=== PATIENT | female | born 1960 | race Caucasian/White ===

== ENCOUNTER 2018-07-01 22:43 | Emergency (ER) | payer MEDICARE, BC ==
[2018-07-01] MEDS ORDERED: ONDANSETRON 4 MG/2 ML VIAL IVP STA (23:11)
[2018-07-01] MEDS ORDERED: HYDROmorphone 1 MG/ML 1 ML SYRINGE IVP STA (23:11)
[2018-07-01] MEDS ORDERED: SODIUM CHLORIDE 0.9% 1,000 ML IV STA (23:11)
--- NOTE | 2018-07-01 23:46 | ED ---
General Adult HPI - General Chief complaint: Back Pain/Injury Stated complaint: Back, Abdominal Pain Time Seen by Provider: 07/01/18 23:02 Source: patient, family Mode of arrival: ambulatory Limitations: no limitations - History of Present Illness Initial comments: 57-year-old female patient presents to the emergency department today for evaluation of back pain and abdominal pain. Patient states that she started having symptoms last Friday. Patient states that she was having low back pain that radiated up her spine and around her upper abdomen. Patient states that with this she develops shortness of breath and nausea. Patient states that she was seen and evaluated for this at [facility] on Friday, states he did labs and a CAT scan and found no abnormalities. Patient states they discharged her with Toradol which she has been taking but it is not helping. Patient states she did improve over the last 2 days however symptoms started again today around 6 PM. Patient states the pain is worsening. States currently she is nauseated and short of breath. She has history of appendectomy but no other abdominal surgeries. States she has not vomited today. She denies any numbness or tingling to the lower extremities. Denies saddle anesthesia or loss of bowel or bladder control. She denies any hematuria , dysuria, urinary frequency, urinary urgency. He denies any fevers or chills with this. Denies chest pain. Patient denies any recent rash, diarrhea, constipation, back pain, numbness, tingling, dizziness, weakness, headache, visual changes, or any other complaints. - Related Data Home Medications Medication Instructions Recorded Confirmed Acetaminophen [Tylenol] 1,000 mg PO Q6HR 07/01/18 07/01/18 Ketorolac [Toradol] 07/01/18 Previous Rx's Medication Instructions Recorded Mag Hydrox/Al Hydrox/Simeth 30 ml PO Q6H PRN #300 ml 07/02/18 [Maalox] Ranitidine HCl [Zantac] 150 mg PO HS #30 tab 07/02/18 Allergies Allergy/AdvReac Type Severity Reaction Status Date / Time vancomycin Allergy Rash/Hives Verified 07/01/18 23:08 Review of Systems ROS Statement: Those systems with pertinent positive or pertinent negative responses have been documented in the HPI. ROS Other: All systems not noted in ROS Statement are negative. Past Medical History Past Medical History: Hyperlipidemia History of Any Multi-Drug Resistant Organisms: None Reported Past Surgical History: Appendectomy, Orthopedic Surgery Additional Past Surgical History / Comment(s): ORIF OF RIGHT FOOT X 2. Past Anesthesia/Blood Transfusion Reactions: No Reported Reaction Past Psychological History: No Psychological Hx Reported Smoking Status: Former smoker Past Alcohol Use History: None Reported Past Drug Use History: Marijuana General Exam Limitations: no limitations General appearance: alert, in no apparent distress, other (This is a well- developed, well-nourished adult female patient in no acute distress. Vital signs upon presentation are temperature 97.6F, pulse 75, respirations 18, blood pressure 154/84, pulse ox 98% on room air.) Eye exam: Present: normal appearance, PERRL, EOMI. Absent: scleral icterus, conjunctival injection, periorbital swelling ENT exam: Present: normal exam, normal oropharynx, mucous membranes moist Respiratory exam: Present: normal lung sounds bilaterally. Absent: respiratory distress, wheezes, rales, rhonchi, stridor Cardiovascular Exam: Present: regular rate, normal rhythm, normal heart sounds. Absent: systolic murmur, diastolic murmur, rubs, gallop, clicks GI/Abdominal exam: Present: soft, tenderness (Upper abdominal tenderness), normal bowel sounds. Absent: distended, guarding, rebound, rigid Back exam: Present: normal inspection. Absent: vertebral tenderness Neurological exam: Present: alert, oriented X3, CN II-XII intact Psychiatric exam: Present: normal affect, normal mood Skin exam: Present: warm, dry, intact, normal color. Absent: rash Course Vital Signs 07/01/18 07/02/18 07/02/18 22:49 01:02 02:02 Temperature 97.6 F 97.1 F L 97.4 F L Pulse Rate 75 72 67 Respiratory 18 18 20 Rate Blood Pressure 154/84 135/84 123/70 O2 Sat by Pulse 98 94 L 93 L Oximetry 07/02/18 02:51 Temperature 98.6 F Pulse Rate Respiratory Rate Blood Pressure O2 Sat by Pulse 98 Oximetry EKG Findings - EKG Comments: EKG Findings:: EKG obtained at 008 shows normal sinus rhythm with a ventricular rate of 66, [place] interval 1:30, QRS duration 72, QT 450, QTC 471. No evidence of ST elevation or depression. Medical Decision Making - Medical Decision Making 57 old female patient percents to the emergency room today for complaints of back pain and epigastric pain. Patient states the pain wrapped around in a bandlike fashion. Physical examination was relatively unremarkable, abdomen soft and nontender. Patient had no CVA tenderness. Labs reviewed and did reveal mildly elevated white blood cell count at 10.8. Troponin was negative. EKG showed normal sinus rhythm. Urinalysis was negative for any evidence of infection or red blood cells indicating stone. Patient did receive 2 doses of pain medication here in the department, didn't help her symptoms much so we did perform CT angio of the aorta, showed no evidence of dissection or intra- abdominal process. Patient did also have CT abdomen and pelvis with contrast at [facility] on Friday, that showed no evidence of acute findings. Given patient's symptoms there is concern for gastritis, there may have been some thickening of the stomach on CT. We'll treat with GI cocktail and start patient on Zantac. She is instructed to follow-up with the primary care physician and gastroenterology for recheck as soon as possible. Return parameters discussed in detail. She verbalizes understanding and agrees with this plan. - Lab Data Result diagrams: 07/01/18 23:52 07/01/18 23:52 Lab Results 07/01/18 07/01/18 07/01/18 Range/Units 23:52 23:52 23:52 WBC 10.8 H (3.8-10.6) k/uL RBC 4.51 (3.80-5.40) m/uL Hgb 13.3 (11.4-16.0) gm/dL Hct 42.0 (34.0-46.0) % MCV 93.1 (80.0-100.0) fL MCH 29.6 (25.0-35.0) pg MCHC 31.8 (31.0-37.0) g/dL RDW 13.4 (11.5-15.5) % Plt Count 498 H (150-450) k/uL Neutrophils % 60 % Lymphocytes % 31 % Monocytes % 5 % Eosinophils % 1 % Basophils % 0 % Neutrophils # 6.5 (1.3-7.7) k/uL Lymphocytes # 3.3 (1.0-4.8) k/uL Monocytes # 0.6 (0-1.0) k/uL Eosinophils # 0.2 (0-0.7) k/uL Basophils # 0.0 (0-0.2) k/uL PT (9.0-12.0) sec INR (<1.2) APTT (22.0-30.0) sec Sodium 137 (137-145) mmol/L Potassium 5.0 (3.5-5.1) mmol/L Chloride 106 (98-107) mmol/L Carbon Dioxide 23 (22-30) mmol/L Anion Gap 8 mmol/L BUN 18 H (7-17) mg/dL Creatinine 0.72 (0.52-1.04) mg/dL Est GFR (CKD-EPI)AfAm >90 (>60 ml/min/1.73 sqM) Est GFR (CKD-EPI)NonAf >90 (>60 ml/min/1.73 sqM) Glucose 124 H (74-99) mg/dL Calcium 9.9 (8.4-10.2) mg/dL Total Bilirubin 0.4 (0.2-1.3) mg/dL AST 30 (14-36) U/L ALT 32 (9-52) U/L Alkaline Phosphatase 85 (38-126) U/L Total Creatine Kinase 177 H (30-135) U/L CK-MB (CK-2) 1.2 (0.0-2.4) ng/mL CK-MB (CK-2) Rel Index 0.7 Troponin I <0.012 (0.000-0.034) ng/mL Total Protein 6.9 (6.3-8.2) g/dL Albumin 4.1 (3.5-5.0) g/dL Amylase 56 (30-110) U/L Lipase 141 (23-300) U/L Urine Color Urine Appearance (Clear) Urine pH (5.0-8.0) Ur Specific [place] (1.001-1.035) Urine Protein (Negative) Urine Glucose (UA) (Negative) Urine Ketones (Negative) Urine Blood (Negative) Urine Nitrite (Negative) Urine Bilirubin (Negative) Urine Urobilinogen (<2.0) mg/dL Ur Leukocyte Esterase (Negative) 07/01/18 07/02/18 Range/Units 23:52 00:00 WBC (3.8-10.6) k/uL RBC (3.80-5.40) m/uL Hgb (11.4-16.0) gm/dL Hct (34.0-46.0) % MCV (80.0-100.0) fL MCH (25.0-35.0) pg MCHC (31.0-37.0) g/dL RDW (11.5-15.5) % Plt Count (150-450) k/uL Neutrophils % % Lymphocytes % % Monocytes % % Eosinophils % % Basophils % % Neutrophils # (1.3-7.7) k/uL Lymphocytes # (1.0-4.8) k/uL Monocytes # (0-1.0) k/uL Eosinophils # (0-0.7) k/uL Basophils # (0-0.2) k/uL PT 9.7 (9.0-12.0) sec INR 1.0 (<1.2) APTT 24.5 (22.0-30.0) sec Sodium (137-145) mmol/L Potassium (3.5-5.1) mmol/L Chloride (98-107) mmol/L Carbon Dioxide (22-30) mmol/L Anion Gap mmol/L BUN (7-17) mg/dL Creatinine (0.52-1.04) mg/dL Est GFR (CKD-EPI)AfAm (>60 ml/min/1.73 sqM) Est GFR (CKD-EPI)NonAf (>60 ml/min/1.73 sqM) Glucose (74-99) mg/dL Calcium (8.4-10.2) mg/dL Total Bilirubin (0.2-1.3) mg/dL AST (14-36) U/L ALT (9-52) U/L Alkaline Phosphatase (38-126) U/L Total Creatine Kinase (30-135) U/L CK-MB (CK-2) (0.0-2.4) ng/mL CK-MB (CK-2) Rel Index Troponin I (0.000-0.034) ng/mL Total Protein (6.3-8.2) g/dL Albumin (3.5-5.0) g/dL Amylase (30-110) U/L Lipase (23-300) U/L Urine Color Colorless Urine Appearance Clear (Clear) Urine pH 5.0 (5.0-8.0) Ur Specific [place] 1.007 (1.001-1.035) Urine Protein Negative (Negative) Urine Glucose (UA) Negative (Negative) Urine Ketones Negative (Negative) Urine Blood Negative (Negative) Urine Nitrite Negative (Negative) Urine Bilirubin Negative (Negative) Urine Urobilinogen <2.0 (<2.0) mg/dL Ur Leukocyte Esterase Negative (Negative) - Radiology Data Radiology results: report reviewed, image reviewed CT angio abdomen and pelvis and chest was obtained, report was reviewed in its entirety, impression by Dr. Nelson shows there is mild atherosclerotic vascular disease. No evidence of aortic aneurysm or dissection. No evidence of hemodynamically significant stenosis. No evidence of pulmonary embolism. Minimal nodular and linear infiltrates at the lung bases consistent with scarring and subsegmental atelectasis. Disposition Clinical Impression: Gastritis, Abdominal pain Disposition: HOME SELF-CARE Condition: Good Instructions: Gastritis (ED), Diet for Stomach Ulcers and Gastritis (ED), Abdominal Pain (ED) Additional Instructions: Take medication as directed. Follow up with gastroenterology for recheck in 1-2 days. Return immediately for any new, worsening, or concerning symptoms. Prescriptions: Mag Hydrox/Al Hydrox/Simeth [Maalox] 30 ml PO Q6H PRN #300 ml PRN Reason: Dyspepsia Ranitidine HCl [Zantac] 150 mg PO HS #30 tab Is patient prescribed a controlled substance at d/c from ED?: No Referrals: Michael Smith MD [Primary Care Provider] - 1-2 days Jarad Zendejas MD [STAFF PHYSICIAN] - 1-2 days Time of Disposition: 02:23
[2018-07-02 00:10] LABS: Basophils % (A) 0 %; Eosinophils # (A) 0.2 k/uL (0-0.7); Eosinophils % (A) 1 %; HGB 13.3 gm/dL (11.4-16.0); Lymphocytes # (A) 3.3 k/uL (1.0-4.8); Lymphocytes % (A) 31 %; MCH 29.6 pg (25.0-35.0); MCHC 31.8 g/dL (31.0-37.0); MCV 93.1 fL (80.0-100.0); Mean Platelet Volume 6.6; Monocytes # (A) 0.6 k/uL (0-1.0); Monocytes % (A) 5 %; Neutrophils # (A) 6.5 k/uL (1.3-7.7); Neutrophils % (A) 60 %; Platelet Count 498 k/uL (150-450); RBC 4.51 m/uL (3.80-5.40); RDW 13.4 % (11.5-15.5); WBC 10.8 k/uL (3.8-10.6)
[2018-07-02 00:14] LABS: Appearance,Urine Clear (Clear); Bilirubin,Urine Negative (Negative); Blood,Urine Negative (Negative); Color,Urine Colorless; Glucose,Urine (UA) Negative (Negative); Ketones,Urine Negative (Negative); Leukocyte Esterase,Urine Negative (Negative); Nitrite,Urine Negative (Negative); Protein,Urine Negative (Negative); Specific Gravity,Urine 1.007 (1.001-1.035); Urobilinogen,Urine <2.0 mg/dL (<2.0)
[2018-07-02 00:21] LABS: ALT 32 U/L (9-52); AST 30 U/L (14-36); Albumin 4.1 g/dL (3.5-5.0); Alkaline Phosphatase 85 U/L (38-126); Amylase 56 U/L (30-110); Anion Gap 8 mmol/L; Blood Urea Nitrogen 18 mg/dL (7-17); Calcium 9.9 mg/dL (8.4-10.2); Carbon Dioxide 23 mmol/L (22-30); Chloride 106 mmol/L (98-107); Glucose 124 mg/dL (74-99); Lipase 141 U/L (23-300); Sodium 137 mmol/L (137-145); Total Bilirubin 0.4 mg/dL (0.2-1.3); Total Protein 6.9 g/dL (6.3-8.2)
[2018-07-02 00:28] LABS: Creatine Kinase 177 U/L (30-135)
[2018-07-02 00:30] LABS: Partial Thromboplastin Time 24.5 sec (22.0-30.0); Prothrombin Time 9.7 sec (9.0-12.0)
[2018-07-02 00:42] LABS: Creatine Kinase MB 1.2 ng/mL (0.0-2.4); Troponin I <0.012 ng/mL (0.000-0.034)
[2018-07-02] MEDS ORDERED: HYDROmorphone 1 MG/ML 1 ML SYRINGE IVP STA (00:52)
--- NOTE | 2018-07-02 01:38 | CT ---
EXAMINATION TYPE: CT angio abdomen pelvis and chest DATE OF EXAM: 07/02/2018 HISTORY: Patient presents for abdominal pain that radiates to her back. CT DLP: 2011.8mGycm Automated Exposure Control for Dose Reduction was Utilized. CONTRAST: CT scan of the abdomen and pelvis is performed with IV Contrast, patient injected with 100mL mL of Is ovue 370. COMPARISON: None FINDINGS: There are 3-D post processed images. The lungs are clear of consolidation. There is some patchy nodul ar infiltrate and linear infiltrate at the posterior lung bases. Heart size is normal. There is no pe ricardial effusion. Thoracic aorta is intact without evidence of aneurysm or dissection. There are no filling defects in the pulmonary arteries. There is no mediastinal adenopathy. There are no hilar ma sses. There are small hiatal hernia. Abdominal aorta has normal size. There is no abdominal aortic aneurysm . There is patency of the celiac artery superior mesenteric artery bilateral renal arteries, common i nternal and external iliac arteries, bilateral femoral arteries. There is no evidence of abdominal aortic aneurysm or dissection. Liver spleen pancreas gallbladder francisco th kidneys are unremarkable. There is small cortical cyst posterior left kidney. Stomach appears unre markable. There is no retroperitoneal adenopathy. Bladder distends smoothly. Uterus is anteverted. Th oracic and lumbar spine are intact. There is no free fluid in the abdomen and pelvis. There is no malvin dence of free air. There is no inguinal hernia. There are a few sigmoid diverticula. There is no sign of diverticulitis. IMPRESSION: There is mild atherosclerotic vascular disease. No evidence of aortic aneurysm or dissection. No evid ence of hemodynamically significant stenosis. No evidence of pulmonary embolism. Minimal nodular and linear infiltrates at the lung bases consistent with scarring and subsegmental atelectasis.
[2018-07-02 02:03] VITALS: BP 123/70; PULSE 67; RESP 20
[2018-07-02] MEDS ORDERED: MAG HYDROX/AL HYDROX/SIMETH 30 ML, HYOSCYAMINE ELIXIR 10 ML, CIMETIDINE HCL 300 MG, LID... PO STA ×4 (02:16)
[2018-07-02] MEDS ORDERED: FAMOTIDINE 20 MG/2 ML VIAL IV STA (02:20)
[2018-07-02 02:52] VITALS: TEMP 98.6
== END 2018-07-02 02:51 | disposition home or self-care (01) ==
LOC: EC 22:43
DX: K29.70 Gastritis, unspecified, without bleeding (principal); M54.5 Low back pain; R06.02 Shortness of breath; D72.829 Elevated white blood cell count, unspecified; Z87.891 Personal history of nicotine dependence; Z79.899 Other long term (current) drug therapy; Z79.1 Long term (current) use of non-steroidal anti-inflammatories (NSAID); Z90.49 Acquired absence of other specified parts of digestive tract; Z88.1 Allergy status to other antibiotic agents
CPT/HCPCS: 36415; 93005; 80053; 82150; 82550; 82553; 83690; 84484; 85025; 85610; 85730; 81003; 74174; 99284; 96374; 96375 ×2; 96376; 96361 ×3; J2405; J1170 ×2; Q9967